=== PATIENT | female | born 1955 | race Caucasian/White ===

== ENCOUNTER 2017-10-16 14:05 | Emergency (ER) | payer OTHER ==
[~2017-10-16] VITALS: Ht 170.2 cm; Wt 113.4 kg
[2017-10-16] MEDS ORDERED: VITAMIN C100 MG (14:20)
[2017-10-16] MEDS ORDERED: PRILOSEC10 MG (14:20)
== END 2017-10-16 19:52 | disposition home or self-care (01) ==
LOC: ER 14:05
DX: I10 Essential (primary) hypertension (principal); R41.0 Disorientation, unspecified

== ENCOUNTER 2022-04-03 15:41 | Emergency (ER) | payer OTHER ==
[~2022-04-03] VITALS: Ht 170.2 cm; Wt 113.4 kg
[~2022-04-03 15:41] MED LIST: PRILOSEC10 MG; VITAMIN C100 MG
[2022-04-03] MEDS ORDERED: NORVASC5 MG PO (15:53)
[2022-04-03] MEDS ORDERED: ATORVASTATIN CA20 MG PO (15:54)
[2022-04-03] MEDS ORDERED: PREVACID15 M1 PO (15:54)
[2022-04-03] MEDS ORDERED: ATACAND4 MG PO (15:54)
[2022-04-03] MEDS ORDERED: BACTRIM DS TAB1 EACH PO (18:36)
[2022-04-03] MEDS ORDERED: ZOFRAN8 MG PO (19:18)
[2022-04-03] MEDS ORDERED: PEPCID AC20 MG PO (19:18)
== END 2022-04-03 19:28 | disposition home or self-care (01) ==
LOC: ER 15:41
DX: N39.0 Urinary tract infection, site not specified (principal); I10 Essential (primary) hypertension; K43.9 Ventral hernia without obstruction or gangrene; K57.30 Diverticulosis of large intestine without perforation or abscess without bleeding; K44.9 Diaphragmatic hernia without obstruction or gangrene